=== PATIENT | female | born 1960 | race African-American/Black ===

== ENCOUNTER 2024-01-11 14:47 | Observation (INO) | payer OTHER ==
[2024-01-11] MEDS ORDERED: ADENOSINE 6 MG/2 ML VIAL IVPUSH ONE ×2 (15:07→15:08)
[2024-01-11 16:04] LABS: BASO % 0.5 % (0-2.0); EOS % 0.5 % (0-4.5); HEMATOCRIT 41.4 % (32.4-45.2); HEMOGLOBIN 14.1 GM/dL (10.7-15.3); LYMPH % 18.4 % (8-40); MCH 30.8 pg (25.7-33.7); MCHC 33.9 g/dl (32.0-36.0); MEAN CELL VOLUME 90.7 fl (80-96); MEAN PLT VOLUME 6.7 fl (7.5-11.1); MONO % 7.7 % (3.8-10.2); NEUT % 72.9 % (42.8-82.8); PLATELET COUNT 348 10^3/uL (134-434); RBC 4.57 M/mm3 (3.60-5.2); RDW 13.5 % (11.6-15.6); WHITE BLOOD COUNT 10.3 K/mm3 (4.0-10.0)
[2024-01-11] MEDS: LACTATED RINGERS SOLUTION 1000 ML INFUS.BAG IV ONE ×2 (16:05→18:30)
[2024-01-11] MEDS ORDERED: ASPIRIN 81 MG CHEWABLE TABLETS ONE (16:43)
[2024-01-11] MEDS: ASPIRIN 81 MG CHEWABLE TABLETS PO ONE (16:49)
[2024-01-11 17:07] LABS: ALBUMIN 3.9 g/dl (3.4-5.0); BLOOD UREA NITROGEN 13.6 mg/dL (7-18); CALCIUM 9.8 mg/dL (8.5-10.1); MAGNESIUM 2.4 mg/dL (1.8-2.4)
[2024-01-11 17:11] LABS: CREATININE 0.8 mg/dL (0.55-1.3)
[2024-01-11 17:12] LABS: BILIRUBIN,TOTAL 0.4 mg/dL (0.2-1); TOT PROT 8.2 g/dl (6.4-8.2)
[2024-01-11 17:13] LABS: INR 1.06 (0.83-1.09)
[2024-01-11 17:16] LABS: ACTIVATED PTT 33.8 SECONDS (25.2-36.5)
[2024-01-11] MEDS: ADENOSINE 6 MG/2 ML VIAL IVPUSH ONE (19:18)
[2024-01-11 23:27] VITALS: BMI 35.6
[2024-01-12] MEDS: ACETAMINOPHEN 325 MG TABLET (FP) PO PRN (00:42)
[2024-01-12 07:49] LABS: BASO % 0.7 % (0-2.0); EOS % 2.5 % (0-4.5); HEMATOCRIT 39.3 % (32.4-45.2); HEMOGLOBIN 13.4 GM/dL (10.7-15.3); LYMPH % 23.4 % (8-40); MCH 31.1 pg (25.7-33.7); MEAN CELL VOLUME 91.4 fl (80-96); MEAN PLT VOLUME 7.1 fl (7.5-11.1); MONO % 6.4 % (3.8-10.2); PLATELET COUNT 317 10^3/uL (134-434); RDW 13.5 % (11.6-15.6); WHITE BLOOD COUNT 9.2 K/mm3 (4.0-10.0)
[2024-01-12 08:04] LABS: POTASSIUM 3.9 mmol/L (3.5-5.1)
[2024-01-12 08:16] LABS: CALCIUM 9.2 mg/dL (8.5-10.1)
[2024-01-12 08:17] LABS: ALBUMIN 3.6 g/dl (3.4-5.0); BLOOD UREA NITROGEN 9.3 mg/dL (7-18)
[2024-01-12 08:20] LABS: BILIRUBIN,TOTAL 0.6 mg/dL (0.2-1); CREATININE 0.6 mg/dL (0.55-1.3)
[2024-01-12 08:21] LABS: TOT PROT 7.7 g/dl (6.4-8.2)
[2024-01-13] MEDS ORDERED: REGADENOSON 0.4 MG/5 ML PRE-FILLED SYRINGE IVPUSH ONE (11:22)
[2024-01-13] MEDS: REGADENOSON 0.4 MG/5 ML PRE-FILLED SYRINGE IVPUSH ONE (13:28)
[2024-01-13] MEDS: ROSUVASTATIN CA 5 MG TABLET PO SCH (22:03)
[2024-01-14 09:53] VITALS: BP 133/78; PULSE 77; RESP 18; TEMP 98.2
== END 2024-01-14 11:34 | disposition home or self-care (01) ==
LOC: JER 14:47 → JERBED 16:33 → J4W 23:40
PROVIDERS: ADMIT Internal Medicine; ATTEND Family Medicine
PROC: 3E033GC Introduction of Other Therapeutic Substance into Peripheral Vein, Percutaneous Approach (ICD-10-PCS; principal; 2024-01-11)
PROC: 3E0337Z Introduction of Electrolytic and Water Balance Substance into Peripheral Vein, Percutaneous Approach (ICD-10-PCS; 2024-01-11)
DX: I24.89 Other forms of acute ischemic heart disease (principal); I49.9 Cardiac arrhythmia, unspecified; I47.10 Supraventricular tachycardia, unspecified; R79.89 Other specified abnormal findings of blood chemistry; I10 Essential (primary) hypertension; E78.5 Hyperlipidemia, unspecified; R73.03 Prediabetes; E04.1 Nontoxic single thyroid nodule; R77.8 Other specified abnormalities of plasma proteins
CPT/HCPCS: 36415; 71045-TC-FY; 71275-TC; 78452-TC; 80053; 80061; 82962; 83036; 83735; 83880; 84443; 84484; 85025; 85610; 85730; 86850; 86900; 86901; 93005; 93010; 93017; 93306-TC; 96374; 99285-25; A9502; G0378; J2785; Q9967

== ENCOUNTER → 2024-02-17 | Day surgery (SDC) | payer OTHER | END | disposition home or self-care (01) | LOC: JRADIR 09:13 | PROVIDERS: ATTEND Internal Medicine Endocrinology, Diabetes & Metabolism | PROC: 0GBH3ZX Excision of Right Thyroid Gland Lobe, Percutaneous Approach, Diagnostic (ICD-10-PCS; principal; 2024-02-17) | DX: E04.1 Nontoxic single thyroid nodule (principal) | CPT/HCPCS: 10005; 76942; 88173; 88305-TC ==